=== PATIENT | female | born 1955 | race Caucasian/White ===

== ENCOUNTER 2021-12-21 14:55 | Emergency (ER) | payer MEDICARE ==
[~2021-12-21] VITALS: Ht 152.4 cm; Wt 92.7 kg
[2021-12-21] MEDS ORDERED: LIDOCAINE HCL 1% LOCAL INJ 20 ML VIAL INJ ONE (15:15)
[2021-12-21] MEDS ORDERED: BACITRACIN ZINC 0.9GM TP ONE ×2 (15:15→15:23)
[2021-12-21] MEDS ORDERED: TETANUS/DIPHTHERIA TOX ADULT 0.5 ML SYR IM ONE (15:15)
[2021-12-21] MEDS ORDERED: GLIPIZIDE5 MG PO (15:21)
[2021-12-21] MEDS ORDERED: LEVOTHYROXINE50 MC1 (15:21)
[2021-12-21] MEDS ORDERED: IRBESARTAN150 MG PO (15:21)
[2021-12-21] MEDS ORDERED: NOVOLOG100 UNIT/1 SC (15:21)
[2021-12-21] MEDS ORDERED: METOPROLOL SUCC50 MG PO (15:21)
[2021-12-21] MEDS ORDERED: BC POWDER PACK1 EAC1 (15:21)
[2021-12-21] MEDS ORDERED: PRAVASTATIN SOD40 MG (15:21)
[2021-12-21] MEDS ORDERED: TETANUS/DIPHTHERIA TOX ADULT 0.5 ML SYR ONE (15:23)
[2021-12-21] MEDS ORDERED: LIDOCAINE HCL 1% LOCAL INJ 20 ML VIAL ONE (15:23)
== END 2021-12-21 16:07 | disposition home or self-care (01) ==
LOC: FSED 16:01
DX: S61.411A Laceration without foreign body of right hand, initial encounter (principal); W45.8XXA Other foreign body or object entering through skin, initial encounter; Y93.G3 Activity, cooking and baking; Y92.000 Kitchen of unspecified non-institutional (private) residence as the place of occurrence of the external cause; E11.9 Type 2 diabetes mellitus without complications; I10 Essential (primary) hypertension; E78.5 Hyperlipidemia, unspecified; E03.9 Hypothyroidism, unspecified; I25.10 Atherosclerotic heart disease of native coronary artery without angina pectoris; Z95.5 Presence of coronary angioplasty implant and graft
CPT/HCPCS: 12001; 90471; 90714; 96372; 99283; J2001

== ENCOUNTER 2021-12-31 12:29 | Emergency (ER) | payer MEDICARE ==
[~2021-12-31] VITALS: Ht 152.4 cm; Wt 90.7 kg
[~2021-12-31 12:29] MED LIST: BC POWDER PACK1 EAC1; GLIPIZIDE5 MG PO; IRBESARTAN150 MG PO; LEVOTHYROXINE50 MC1; METOPROLOL SUCC50 MG PO; NOVOLOG100 UNIT/1 SC; PRAVASTATIN SOD40 MG
== END 2021-12-31 12:45 | disposition home or self-care (01) ==
LOC: FSED 12:45
DX: Z48.02 Encounter for removal of sutures (principal)

== ENCOUNTER 2023-03-10 23:29 | Emergency (ER) | payer MEDICARE ==
[~2023-03-10] VITALS: Ht 152.4 cm; Wt 92.5 kg
[2023-03-11] MEDS ORDERED: METHOCARBAMOL750 MG PO (01:37)
[2023-03-11] MEDS ORDERED: CYCLOBENZAPRINE HCL 10 MG TAB ONE (01:37)
[2023-03-11 01:45] VITALS: BP 160/99; PULSE 76; RESP 18; TEMP 97.5; O2SAT 100
[2023-03-11] MEDS ORDERED: CYCLOBENZAPRINE HCL 10 MG TAB PO ONE (01:45)
== END 2023-03-11 01:45 | disposition home or self-care (01) ==
LOC: FSED 23:46
DX: S20.212A Contusion of left front wall of thorax, initial encounter (principal); H81.09 Meniere's disease, unspecified ear; I10 Essential (primary) hypertension; E11.9 Type 2 diabetes mellitus without complications; Z79.84 Long term (current) use of oral hypoglycemic drugs; E78.5 Hyperlipidemia, unspecified; E03.9 Hypothyroidism, unspecified; Z79.899 Other long term (current) drug therapy; Z79.82 Long term (current) use of aspirin; W18.39XA Other fall on same level, initial encounter; Y93.H2 Activity, gardening and landscaping; Y92.007 Garden or yard of unspecified non-institutional (private) residence as the place of occurrence of the external cause
CPT/HCPCS: 71250; 99283

== ENCOUNTER 2025-04-04 14:15 | Emergency (ER) | payer MEDICARE ==
[~2025-04-04] VITALS: Ht 147.3 cm; Wt 62.6 kg
[~2025-04-04 14:15] MED LIST changes: +FIORICET 50-301 EACH PO; +METHOCARBAMOL750 MG PO; +ONDANSETRON ODT4 MG PO
[2025-04-04 14:45] VITALS: RESP 14; TEMP 97.6
[2025-04-04] MEDS ORDERED: LEVOTHYROXINE75 MCG PO (15:11)
[2025-04-04] MEDS ORDERED: IRBESARTAN300 MG PO (15:11)
[2025-04-04] MEDS ORDERED: MOUNJARO5 MG/0.5 M (15:11)
[2025-04-04] MEDS ORDERED: CLOPIDOGREL75 MG PO (15:11)
[2025-04-04] MEDS ORDERED: LEVEMIR SQ (15:11)
[2025-04-04] MEDS ORDERED: ROSUVASTATIN CA40 MG PO (15:11)
[2025-04-04] MEDS: ACETAMINOPHEN 325 MG TAB PO ONE (15:46)
[2025-04-04] MEDS: DEXAMETHASONE 4 MG TAB PO STA (15:48)
[2025-04-04] MEDS: KETOROLAC TROMETHAMINE 30 MG/ML VIAL IM STA (15:51)
[2025-04-04] MEDS: LIDOCAINE 4% PATCH TP STA (15:51)
[2025-04-04 17:00] VITALS: PULSE 83; O2SAT 100
[2025-04-04] MEDS ORDERED: NEURONTIN100 MG PO (17:46)
== END 2025-04-04 18:00 | disposition home or self-care (01) ==
LOC: ER 15:20
DX: M54.41 Lumbago with sciatica, right side (principal); I10 Essential (primary) hypertension; E11.9 Type 2 diabetes mellitus without complications; E03.9 Hypothyroidism, unspecified; I25.10 Atherosclerotic heart disease of native coronary artery without angina pectoris; E78.5 Hyperlipidemia, unspecified; K21.9 Gastro-esophageal reflux disease without esophagitis; F41.9 Anxiety disorder, unspecified; G89.29 Other chronic pain; Z95.1 Presence of aortocoronary bypass graft; Z95.5 Presence of coronary angioplasty implant and graft
CPT/HCPCS: 72131; 99283; J1885; J8540

== ENCOUNTER 2025-04-19 17:41 | Inpatient (IN) | payer MEDICARE ==
[~2025-04-19] VITALS: Ht 152.4 cm; Wt 60.9 kg
[~2025-04-19 17:41] MED LIST changes: +CLOPIDOGREL75 MG PO; +IRBESARTAN300 MG PO; +LEVEMIR SQ; +LEVOTHYROXINE75 MCG PO; +MOUNJARO5 MG/0.5 M; +NEURONTIN100 MG PO; +ROSUVASTATIN CA40 MG PO
[2025-04-19] MEDS ORDERED: Morphine 2mg Syringe 2 MG/ML SYR ONE (18:13)
[2025-04-19] MEDS: ONDANSETRON HCL INJ 2MG/ML 2ML 2 MG/ML VIAL IV STA (18:23)
[2025-04-19] MEDS: SODIUM CHLORIDE 0.9% 1000ML 1,000 ML IV ONE (18:23)
[2025-04-19] MEDS: FAMOTIDINE 20 MG/2 ML VIAL IV STA (18:23)
[2025-04-19] MEDS: Morphine 4mg INJECTION 4 MG/ML INJ IV ONE (18:47)
[2025-04-19] MEDS: Morphine 2mg Syringe 2 MG/ML SYR IV ONE (19:26)
[2025-04-19 19:30] VITALS: PULSE 97; RESP 18; TEMP 97.1
[2025-04-19] MEDS ORDERED: DEXAMETHASONE SOD PHOS 10 MG/1 ML VIAL IV ONE (19:30)
[2025-04-19 20:45] VITALS: BP 159/97; PULSE 97; RESP 17; TEMP 97.4; O2SAT 100
[2025-04-19] MEDS: DEXAMETHASONE SOD PHOS INJ 4 MG/ML SDV IV ONE (21:16)
[2025-04-19] MEDS: SODIUM CHLORIDE 0.9% 1000ML 1,000 ML IV SCH (21:17)
[2025-04-19 21:59] VITALS: BP 151/88; PULSE 89; RESP 18; TEMP 97.8; O2SAT 99
[2025-04-19 22:15] VITALS: BP 151/59; PULSE 90; RESP 20; TEMP 98; O2SAT 100
[2025-04-19] MEDS: Morphine 2mg Syringe 2 MG/ML SYR IV PRN (22:51)
[2025-04-19] MEDS: ONDANSETRON HCL INJ 2MG/ML 2ML 2 MG/ML VIAL IV PRN (22:51)
[2025-04-20] VITALS (8 sets, daily range): BP systolic 121–176; BP diastolic 66–100; PULSE 100–112; RESP 16–20; TEMP 97.3–98.9; O2SAT 96–100
[2025-04-20 05:54] LABS: BASOPHILS % 0.3 % (0.0-1.0); EOSINOPHILS % 0.0 % (0.0-6.0); LYMPHOCYTES % 8.6 % (18.0-39.1); MONOCYTES % 1.6 % (4.4-11.3); NEUTROPHILS % 89.0 % (38.7-80.0); RED CELL DISTRIBUTION WIDTH 12.9 % (11.7-14.4)
[2025-04-20 06:27] LABS: EST GLOMERULAR FILTRATION RATE 71.0 ML/MIN (>=60)
[2025-04-20] MEDS: SENNA-S TABLET PO SCH (09:00)
[2025-04-20] MEDS: METOPROLOL SUCCINATE 50 MG TAB XL PO SCH (09:00)
[2025-04-20] MEDS ORDERED: DEXTROSE 50% SYRINGE 50 ML IV PRN (09:00)
[2025-04-20] MEDS ORDERED: HYDRALAZINE HCL 20 MG/ML VIAL IV PRN (09:00)
[2025-04-20] MEDS: GABAPENTIN 100 MG CAP PO SCH (09:00)
[2025-04-20] MEDS: HYDROMORPHONE 1MG/1ML INJ IV STA (09:19)
[2025-04-20] MEDS: LEVOTHYROXINE SODIUM 75 MCG TAB PO SCH (10:00)
[2025-04-20] MEDS: ONDANSETRON HCL INJ 2MG/ML 2ML 2 MG/ML VIAL IV PRN (11:10)
[2025-04-20] MEDS: INSULIN LISPRO 100 UNIT/1 ML 3ML VIAL SQ SCH ×2 (11:30→21:00)
[2025-04-20] MEDS: KETOROLAC TROMETHAMINE 30 MG/ML VIAL IV PRN (11:53)
[2025-04-20] MEDS: HYDROCODONE/APAP 10MG-325MG TAB PO ONE (13:34)
[2025-04-20] MEDS: HYDROMORPHONE 1MG/1ML INJ IV PRN (16:09)
[2025-04-20] MEDS: FAMCICLOVIR 500 MG TAB PO SCH (20:07)
[2025-04-20] MEDS: DEXAMETHASONE SOD PHOS 10 MG/1 ML VIAL IV SCH (20:08)
[2025-04-20] MEDS: INSULIN GLARGINE 100 UNITS/ML VIAL SQ SCH (21:00)
[2025-04-21] VITALS (8 sets, daily range): BP systolic 109–164; BP diastolic 57–78; PULSE 84–104; RESP 17–20; TEMP 97.4–97.9; O2SAT 96–100
[2025-04-21] MEDS: INSULIN LISPRO 100 UNIT/1 ML 3ML VIAL SQ SCH (08:54)
[2025-04-21] MEDS ORDERED: GADOBENATE DIMEGLUMINE 1 ML IV ONE (08:56)
[2025-04-22 03:06] VITALS: BP 151/87; PULSE 91; RESP 18; TEMP 97.6; O2SAT 99
[2025-04-22] MEDS: HYDROCODONE/APAP 10MG-325MG TAB PO PRN (04:12)
[2025-04-22 07:43] VITALS: BP 151/86; PULSE 91; RESP 16; TEMP 98.1; O2SAT 99
[2025-04-22 08:01] VITALS: BP 151/86; PULSE 91; RESP 16; TEMP 98.1; O2SAT 99
[2025-04-22] MEDS: ACETAMINOPHEN 325 MG TAB PO PRN (13:53)
[2025-04-22 16:50] VITALS: BP 121/61; PULSE 81; RESP 20; TEMP 98.4; O2SAT 97
[2025-04-22 20:00] VITALS: BP 131/66; PULSE 80; RESP 17; TEMP 98.9; O2SAT 98
[2025-04-23 00:11] VITALS: BP 126/64; PULSE 79; RESP 16; TEMP 97.9; O2SAT 100
[2025-04-23 08:00] VITALS: BP 150/83; PULSE 82; RESP 18; TEMP 98; O2SAT 100
[2025-04-23 10:49] VITALS: BP 150/83; PULSE 82; RESP 18; TEMP 98; O2SAT 100
[2025-04-23 12:00] VITALS: BP 140/74; PULSE 87; RESP 18; TEMP 98.4; O2SAT 99
[2025-04-23 16:00] VITALS: BP 148/81; PULSE 96; RESP 18; TEMP 98; O2SAT 100
[2025-04-23 20:00] VITALS: BP 148/81; PULSE 96; RESP 18; TEMP 98; O2SAT 100
[2025-04-24 04:00] VITALS: BP 134/73; PULSE 68; RESP 18; TEMP 98.4; O2SAT 96
[2025-04-24 08:00] VITALS: BP 157/83; PULSE 69; RESP 18; TEMP 98.1; O2SAT 99
[2025-04-24 12:00] VITALS: BP 136/66; PULSE 66; RESP 17; TEMP 97.8; O2SAT 97
[2025-04-24] MEDS ORDERED: FAMCICLOVIR PO (14:44)
[2025-04-24] MEDS ORDERED: ACYCLOVIR800 MG PO ×2 (14:55→14:58)
[2025-04-24] MEDS ORDERED: KETOROLAC TROME10 MG PO (14:56)
[2025-04-24] MEDS ORDERED: DEXAMETHASONE4 MG PO (14:57)
== END 2025-04-24 15:45 | disposition home or self-care (01) | DRG 596 ==
LOC: FSED 17:44 → ERHOLD 19:40 → MED/SURG3 20:48
PROVIDERS: ADMIT Internal Medicine; ATTEND Internal Medicine
DX: B02.9 Zoster without complications (principal); E87.20 Acidosis, unspecified; H60.11 Cellulitis of right external ear; E78.5 Hyperlipidemia, unspecified; E03.9 Hypothyroidism, unspecified; I10 Essential (primary) hypertension; E86.0 Dehydration; E11.9 Type 2 diabetes mellitus without complications; R11.2 Nausea with vomiting, unspecified; I25.10 Atherosclerotic heart disease of native coronary artery without angina pectoris; F41.9 Anxiety disorder, unspecified; K21.9 Gastro-esophageal reflux disease without esophagitis; R19.7 Diarrhea, unspecified; M54.9 Dorsalgia, unspecified; Z79.02 Long term (current) use of antithrombotics/antiplatelets; Z79.84 Long term (current) use of oral hypoglycemic drugs; Z79.890 Hormone replacement therapy; Z90.49 Acquired absence of other specified parts of digestive tract; Z95.1 Presence of aortocoronary bypass graft; Z95.5 Presence of coronary angioplasty implant and graft; Z88.5 Allergy status to narcotic agent; Z88.8 Allergy status to other drugs, medicaments and biological substances
CPT/HCPCS: 36415; 70486; 70543; 70551; 80048; 80053; 82948; 85025; 86140; 96372; 96375; 99284; J0696; J1100; J1171; J1308; J1815; J1885; J2270; J2405; J2543; J7030